=== PATIENT | female | born 1960 | race African-American/Black ===

== ENCOUNTER 2017-04-25 10:03 | Inpatient (IN) | payer OTHER ==
[~2017-04-25] VITALS: Ht 157.5 cm; Wt 93.0 kg
--- NOTE | ~2017-04-25 | PROC ---
[address] [address] PROCEDURE REPORT Name: NEMESIO FELIPE Room: [address] IN .R.#: [id number] Admission: 04/25/17 Attend Phys: Tung Farooq MD Discharge: Date of : 56 Report #: [id number] THIS REPORT FOR: //name// For GI report, please see the Provation report in Perceptive 7 content. By: 0636Medical Records Staff SALAZAR /NISHA
[~2017-04-25 10:03] MED LIST: ACETAMINOPHEN650 M5 PO; ALDACTONE25 MG PO; ALDACTONE50 MG PO; ALLOPURINOL 10100 M2 PO; AMBIEN 10 MG TA10 MG PO; AMBIEN 5 MG TABL5 M1 PO; ASPIRIN325 PO; AVINZA 60 MG CA60 M1 PO; BYSTOLIC10 MG PO; BYSTOLIC20 MG PO; CARDIZEM CD120 MG PO; CARDIZEM CD180 MG PO; CARVEDILOL25 MG PO; CELEXA40 MG; CIPRO500 MG PO; CITRATE OF MAG296 ML PO; CLARITIN10 MG PO; CLONIDINE HCL0.3 M3 TRANSDERM; CLONIDINE0.1 PO; CYMBALTA20 MG PO; CYMBALTA30 MG PO; DETROL2 M1 PO; ELIQUIS5 MG PO; FLAGYL500 MG PO; FLEXERIL PO; FOLIC ACID; GABAPENTIN 100100 MG PO; GLIMEPIRIDE1 MG PO; GLUCOPHAGE500 MG PO; HYDRALAZINE 2525 MG PO; HYDROCHLOROTHIA25 M1 PO; HYDROCODON-ACE1 EAC8 PO; HYDROCODON-ACE1 EACH PO; HYDROCODONE PO; HYDROCODONE-APA1 TA1 PO; IMDUR 30 MG TAB30 M1 PO; K-DUR10 MEQ PO; LASIX 20 MG TAB20 MG PO; LASIX 40 MG TAB40 M2 PO; LASIX 40 MG TAB40 MG PO; LISINOPRIL40 MG PO; LISINOPRIL5 MG PO; MEDROLDOSEPACK; MILK OF MA2400 MG/10 PO; MIRALAX17 GM PO; MIRALAX255 GM PO; MOBIC15 MG PO; MORPHINE S10 MG/5 M2 PO; MORPHINE SULFAT15 M4 PO; MS CONTIN60 MG PO; NEURONTIN 300300 M1 PO; NORVASC 5 MG TAB5 MG PO; NORVASC PO; OMEPRAZOLE40 MG PO; ONDANSETRON HCL4 M2 PO; OXYCONTIN10 M1 PO; PACERONE 200 M200 M1 PO; PERCOCET PO; PRILOSEC40 MG PO; PROAIR HFA8.5 GM INH; ROBAXIN500 MG PO; SPIRONOLACTONE25 M1 PO; SPIRONOLACTONE50 MG PO; VENTOLIN HFA 1818 GM INH; VISTARIL 25 MG25 M1; WELLBUTRIN 100100 MG PO; WELLBUTRIN SR150 MG PO; ZANTAC 150MG T150 M1 PO; ZANTAC 150MG T150 MG PO; ZOFRAN ODT4 MG PO; ZOFRAN8 MG PO
[2017-04-25 10:06] VITALS: BP 188/95
[2017-04-25] MEDS ORDERED: COZAAR 25 MG TA25 M1 PO (10:11)
[2017-04-25 11:32] LABS: ABSOLUTE BASOPHILS 0.1 thou/uL (0.0-0.2); ABSOLUTE EOSINOPHILS 0.2 thou/uL (0.0-0.7); ABSOLUTE MONOCYTES 1.1 thou/uL (0.0-1.2); ABSOLUTE NEUTROPHILS 6.2 thou/uL (1.6-8.1); BASOPHILS 0.8 %; EOSINOPHILS 2.7 %; HEMATOCRIT 40.9 % (37.0-47.0); HEMOGLOBIN 13.5 gm/dL (12.0-15.0); LYMPHOCYTES 11.2 %; MCH 30.9 pg (26.0-34.0); MCHC 33.1 g/dL (28.0-37.0); MCV 93.4 fL (80.0-100.0); MPV 9.1 fl. (7.2-11.1); NUCLEATED RBCS 0 /100WBC; PLATELET COUNT* 380 thou/uL (150-400); POLYS 72.3 %; RBC 4.38 mil/uL (4.20-5.00); RDW-CV 15.4 % (10.5-14.5); WBC 8.5 thou/uL (4.0-11.0)
[2017-04-25 12:14] LABS: ANION GAP 7 mmol/L (7-16); BUN 22 mg/dL (7-18); CALCIUM 8.9 mg/dL (8.5-10.1); CHLORIDE 104 mmol/L (98-107); CO2 29 mmol/L (21-32); CREATININE 1.4 mg/dL (0.6-1.3); GLUCOSE 157 mg/dL (70-99); POTASSIUM 3.9 mmol/L (3.5-5.1); SODIUM 140 mmol/L (136-145)
[2017-04-25 12:21] LABS: ALBUMIN 3.2 g/dL (3.4-5.0); ALKALINE PHOSPHATASE 128 U/L (46-116); LIPASE 120 U/L (73-393); SGOT 111 U/L (15-37); SGPT 107 U/L (30-65); TOTAL BILIRUBIN 1.4 mg/dL (<0.1-1.0); TOTAL PROTEIN 7.6 g/dL (6.4-8.2); TROPONIN-I LEVEL <0.06 ng/mL (<0.06)
[2017-04-25 12:40] LABS: URINE BILIRUBIN NEGATIVE (Negative); URINE BLOOD NEGATIVE (Negative); URINE CLARITY CLEAR; URINE COLOR YELLOW; URINE GLUCOSE-RANDOM NEGATIVE (Negative); URINE KETONES NEGATIVE (Negative); URINE LEUKOCYTES-REFLEX NEGATIVE (Negative); URINE NITRITE-REFLEX NEGATIVE (Negative); URINE PROTEIN TRACE (Negative); URINE UROBILINOGEN >= 8.0 E.U./dl (0.2-1.0)
[2017-04-25 13:27] LABS: INFLUENZA A ANTIGEN None Detected (None Detect)
[2017-04-25 13:28] LABS: INFLUENZA B ANTIGEN None Detected (None Detect)
--- NOTE | 2017-04-25 15:31 | NUR ---
1LITER BAG NS AND FLAGYL WERE PULLED FOR PATIENT AND SENT TO [facility] WITH PATIENT THE CIPRO WAS STILL INFUSING
[2017-04-25 15:33] VITALS: BP 150/79
[2017-04-25 16:00] VITALS: BP 146/76
--- NOTE | 2017-04-25 16:33 | NUR ---
PATIENT ADMITTED FROM ER TO ROOM 114. ALERT AND ORIENTED. RUQ PAIN PARTIALLY CONTROLLED WITH MORPHINE. NAUSEATED- ZOFRAN GIVEN. IVF AND FLAGYL INFUSING AT THIS TIME. PATIENT HAS H/O CHF-INFORMED DR. VIDAL THAT FLUIDS ARE RUNNING AT 150ML/HR, AND PATIENT HAS WHEEZES AND PRODUCTIVE COUGH-ORDERS TO DECREASE FLUIDS TO 75ML/HR, AND GIVE LASIX IV X1. ADMISSION HISTORY AND ASSESSMENT CHARTED. VSS. O2 SAT ON2L- 96%. PATIENT VOIDED UPON ARRIVAL. ORIETNED TO ROOM. ORAL SWABS PROVIDED.GI AND SURGERY CONSULTED. CALL LIGHT WITHIN REACH. WILL CONTINUE TO MONITOR.
--- NOTE | 2017-04-25 18:45 | NUR ---
I WAS PAGED BY ORTHO WHILE IN THE ER AND RETURNED THE CALL. I WAS TOLD THAT THE PT IN 114 DID NOT RECIEVE A BREATHING TREATMENT. I WAS UNAWARE OF ANY TREATMENTS BEING DUE ON THAT FLOOR THE BOARD IN OUR DEPT DID NOT REFLECT ANY PT'S. I WAS TOLD THAT WAS NOT CORRECT. I STATED I WOULD HEAD DOWN THERE AFTER I HAD FINISHED IN THE ER. WHEN I WAS DONE IN THE ER I LOOKED UP THE PT ON ORTHO AND REALIZED IT WAS A NEW ORDER AND WAS (QID) WITH NO (PRN) ORDERS. THE FIRST TREATMENT WAS DUE AT 1999 (8PM). I CALLED THE ORTHO FLOOR TO EXPLAIN THE CONFLICT AND SUGGESTED A PRN ORDER WOULD BE HELPFUL IN THIS SITUATION.
[2017-04-25 22:10] VITALS: BP 163/85
[2017-04-26 01:25] VITALS: BP 177/90
[2017-04-26 04:07] VITALS: BP 170/58
[2017-04-26 04:30] LABS: ABSOLUTE BASOPHILS 0.1 thou/uL (0.0-0.2); ABSOLUTE EOSINOPHILS 0.3 thou/uL (0.0-0.7); ABSOLUTE MONOCYTES 1.4 thou/uL (0.0-1.2); ABSOLUTE NEUTROPHILS 5.4 thou/uL (1.6-8.1); BASOPHILS 1.1 %; EOSINOPHILS 3.5 %; HEMATOCRIT 36.5 % (37.0-47.0); HEMOGLOBIN 12.1 gm/dL (12.0-15.0); LYMPHOCYTES 12.1 %; MCH 30.8 pg (26.0-34.0); MCHC 33.1 g/dL (28.0-37.0); MONOCYTES 17.3 %; MPV 8.9 fl. (7.2-11.1); NUCLEATED RBCS 0 /100WBC; PLATELET COUNT* 324 thou/uL (150-400); RBC 3.93 mil/uL (4.20-5.00); RDW-CV 14.8 % (10.5-14.5); WBC 8.2 thou/uL (4.0-11.0)
[2017-04-26 05:23] LABS: ALBUMIN 3.1 g/dL (3.4-5.0); CALCIUM 8.6 mg/dL (8.5-10.1); CREATININE 1.3 mg/dL (0.6-1.3); MAGNESIUM 1.6 mg/dL (1.8-2.4); PHOSPHORUS* 4.4 mg/dL (2.5-4.9); POTASSIUM 4.1 mmol/L (3.5-5.1); TOTAL BILIRUBIN 0.8 mg/dL (<0.1-1.0); TOTAL PROTEIN 6.8 g/dL (6.4-8.2)
--- NOTE | 2017-04-26 06:52 | NUR ---
UP WITH STAND BY ASSIST TO BEDSIDE COMMODE. ALERT AND ORIENTED. LUNG SOUNDS COARSE AND WITH WHEEZES AT BEGINNING OF SHIFT. BREATHING TREATMENT GIVEN AND BY END OF SHIFT PATIENT STATED SHE WAS FEELING MUCH BETTER AND LUNGS BETTER WITHOUT WHEEZES. O2 SAT 93% WITH O2 AT 2L/NC. NEW IV STARTED WITHOUT DIFFICLUTY. PATIENT NPO AT THIS TIME. CALL LIGHT WITHIN REACH.
[2017-04-26 08:00] VITALS: BP 162/78
--- NOTE | 2017-04-26 09:32 | NUR ---
SPOKE WITH DR. SOUSA REGARDING PLANS FOR PATIENT TODAY. PER DR. SOUSA WE CAN DO AN MRCP IF POSSIBLE, HOWEVER PATIENT HAS DEFIBRILLATOR. SPOKE WITH DARLINE IN MRI AND THE DEFIBRILLATOR IS NOT COMPATIBLE WITH MRI. STATED IF UNABLE TO DO MRI SHE CAN EAT. CALLED STIFF LEG OPERATOR TO INFORM THEM OF GI'S RECOMENDATION. AWAITING RETURN CALL.
--- NOTE | 2017-04-26 10:49 | EKG ---
[place] [address] ELECTROCARDIOGRAM REPORT Name: MATTEONEMESIO Elmer Room: [address] ADM IN [facility]#: [id number] Admission: 04/25/17 Attend Phys: Tung Farooq MD Discharge: Date of : 56 Report #: [id number] THIS REPORT FOR: //name// [facility] ED Test Date: 2017-04-25 Test Time: 10:07:49 Pat Name: NEMESIO FELIPE Department: Room: [facility] Gender: F Nursing Agency Manager: [facility] : 1960 Requested By: Lucy Reno Order Number: [id number] MD: Rich Rader Measurements Intervals Fertile Rate: 79 P: 11 HI: 187 QRS: -41 QRSD: 113 T: 86 QT: 433 QTc: 497 Interpretive Statements Sinus rhythm Probable left atrial enlargement Left ventricular hypertrophy Nonspecific T abnormalities, lateral leads Borderline prolonged QT interval Compared to ECG 10/15/2016 13:46:47 rate increased Electronically Signed On 04-26-2017 10:49:19 PAPER INSERTER by Rich Rader [email or web address] <ELECTRONICALLY SIGNED> By: Rich Rader MD, FACC 04/26/17 1049 1007 1007 Rich Rader MD, FAC /EPI
--- NOTE | 2017-04-26 14:38 | NUR ---
ASK IF PATIENT NEEDED TO BE ON ANTIBIOTICS, PER DR. SOUSA PATIENT DOES NOT NEED ANTIBIOTIC.
[2017-04-26 16:00] VITALS: BP 160/80
--- NOTE | 2017-04-26 16:19 | NUR ---
PATIENT REMAINS ALERT AND ORIENTED. PAIN CONTROLLED WITH MORPHINE. ZOFRAN FOR NAUSEA. VOIDING PER BSC. IVF SL THIS AFTERNOON. PATIENT HAD RUQ PAIN AFTER HEART HEALTHY DIET FOR LUNCH. DR. MERRY MOSS, EGD PLANNED FOR TOMORROW DUE TO HISTORY OF GASTRITIS. PATIENT WILL BE NPO AFTER 0600. POSSIBLE SURGERY WED. DR. JAMES CONSULTED FOR PRE OP CLEARANCE. CALL LIGHT WITHIN REACH. WILL CONTINUE TO MONITOR.
[2017-04-26 21:00] VITALS: BP 154/79
[2017-04-27] VITALS (7 sets, daily range): BP systolic 143–167; BP diastolic 66–75
[2017-04-27 04:47] LABS: ABSOLUTE BASOPHILS 0.1 thou/uL (0.0-0.2); ABSOLUTE EOSINOPHILS 0.4 thou/uL (0.0-0.7); ABSOLUTE LYMPHOCYTES 1.1 thou/uL (0.8-5.3); ABSOLUTE MONOCYTES 1.4 thou/uL (0.0-1.2); ABSOLUTE NEUTROPHILS 4.2 thou/uL (1.6-8.1); BASOPHILS 0.8 %; HEMATOCRIT 36.4 % (37.0-47.0); HEMOGLOBIN 11.8 gm/dL (12.0-15.0); LYMPHOCYTES 15.1 %; MCH 30.6 pg (26.0-34.0); MCHC 32.5 g/dL (28.0-37.0); MCV 94.1 fL (80.0-100.0); MPV 8.7 fl. (7.2-11.1); NUCLEATED RBCS 0 /100WBC; PLATELET COUNT* 292 thou/uL (150-400); POLYS 59.1 %; RBC 3.87 mil/uL (4.20-5.00); RDW-CV 14.7 % (10.5-14.5); WBC 7.2 thou/uL (4.0-11.0)
[2017-04-27 05:01] LABS: CALCIUM 8.4 mg/dL (8.5-10.1); CREATININE 1.3 mg/dL (0.6-1.3); POTASSIUM 3.8 mmol/L (3.5-5.1); TOTAL BILIRUBIN 0.8 mg/dL (<0.1-1.0); TOTAL PROTEIN 6.9 g/dL (6.4-8.2)
[2017-04-27 05:23] LABS: ALBUMIN 2.9 g/dL (3.4-5.0); DIRECT BILIRUBIN 0.2 mg/dL (<0.1-0.3); TOTAL BILIRUBIN 0.8 mg/dL (<0.1-1.0); TOTAL PROTEIN 6.9 g/dL (6.4-8.2)
--- NOTE | 2017-04-27 05:26 | NUR ---
PATIENT ALERT AND ORIENTED. VITALS STABLE. ON 1L OF OXYGEN. COMPLAINTS OF HEADACHE AND BACK PAIN. IV PAIN MEDICATION GIVEN. ZOFRAN GIVEN PROPHYLACTICALLY. UP SBA TO B[facility]. WILL BE NPO AT 0600 FOR EGD. HOURLY ROUNDS. NURSING WILL CONTINUE TO MONITOR.
--- NOTE | 2017-04-27 10:11 | NUR ---
NURSING PAINTER TUMBLING BARREL CALLED [facility] TO NOTIFIY THEM OF THE NEED TO INTERROGATE DEFIBRILLATOR POST OP TOMORROW.
--- NOTE | 2017-04-27 15:59 | NUR ---
PATIENT RETURNED FROM EGD AT THIS TIME. TOLERATING LIQUIDS. 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 ABDOMINAL PAIN CONTROLLED WITH MORPHINE. PATIENT WILL BE NPO AFTER MIDNIGHT FOR SURGERY TOMORROW. PATIENT SITS EDGE OF BED FREQUENTLY. DOES NOT AMBULATE MUCH NORMALLY DUE TO BACK PAIN AND KNEE PAIN. IV SALINE LOCKED. CALL LIGHT WITHIN REACH. WILL CONTINUE TO MONITOR.
--- NOTE | 2017-04-27 17:36 | CON ---
[address] [address] CONSULTATION Name: NEMESIO FELIPE Room: [address] IN .R.#: [id number] Admission: 04/25/17 Attend Phys: Tung Farooq MD Discharge: Date of : 56 Report #: [id number] THIS REPORT FOR: //name// CC: Tung Delacruz DATE OF SERVICE: 04/26/2017 HISTORY OF PRESENT ILLNESS: The patient is a 56-year-old single black female who was asked to see in the hospital today for preoperative evaluation. The patient presented in 2012 with chest pain and shortness of breath. She saw Dr. Cárdenas and had a heart catheterization. This showed normal coronary arteries and an ejection fraction of 25%. She is felt to have a nonischemic cardiomyopathy. She was discharged with LifeVest. After discharge, the LifeVest shocked her. She was admitted to [facility] and Dr. Zaidi implanted a single lead [employer] defibrillator in 02/2013. She has done well since that time. Her last echocardiogram here at [facility] was in 08/2016 that showed an ejection fraction of only 45%. Because of insurance, she has recently been followed by Dr. Eagle virgen at [place]. She apparently had her defibrillator checked there at [place] in February. She denied any recent discharges. The patient is not very active because of chronic back pain. She uses a walker. She apparently had back surgery last July at [place]. The patient recently has been having nausea and vomiting. She came to the Emergency Room yesterday. There are plans for cholecystectomy. I was asked to see her for preoperative evaluation. She denied any significant chest pain, increased shortness of breath, edema, palpitations, recent discharge of her defibrillator. PAST MEDICAL HISTORY: Significant for 3 back surgeries now. She has a history of hypertension, diabetes. She has a history of depression. CURRENT MEDICATIONS: Include Lasix, Cymbalta, ProAir, allopurinol, carvedilol, glimepiride, and losartan. ALLERGIES: SHE HAS INTOLERANCE TO MORPHINE. FAMILY HISTORY: Father with heart disease. SOCIAL HISTORY: She is single. She does have 2 daughters, never been . Used to work in real estate. She is now on disability. She previously smoked marijuana years ago, rarely drinks alcohol, no tobacco use. REVIEW OF SYSTEMS: She has had no history of stroke. She does have history of asthma. No history of peptic ulcer disease or liver disease. She has chronic kidney disease. She has a history of depression. No chronic skin condition. She is overweight, standing 5 feet 4 inches and weighing [address] [place] [address] CONSULTATION Name: NEMESIO FELIPE Room: [address] IN [facility]#: [id number] Admission: 04/25/17 Attend Phys: Tung Farooq MD Discharge: Date of : 56 Report #: [id number] PHYSICAL EXAMINATION: GENERAL: Revealed a middle-aged black female, lying in bed. She appeared in no distress. VITAL SIGNS: She had a blood pressure of 140/70, pulse is 80. She is afebrile. HEENT: She was anicteric, conjunctiva pink. Mucous membranes moist. NECK: Veins are difficult to assess due to obesity. No carotid bruits. CHEST: Clear to auscultation. HEART: Regular rate and rhythm. ABDOMEN: Obese, soft, nontender. EXTREMITIES: Had no edema. Dorsalis pedis pulse 1+ bilaterally. SKIN: Cool and dry. NEUROLOGIC: Nonfocal. LYMPH: No adenopathy. MUSCULOSKELETAL: No joint effusion. RADIOLOGICAL DATA: ECG showed a sinus rhythm, left axis, nonspecific ST-segment changes, left ventricular hypertrophy. LABORATORY DATA: Sodium 144, BUN 18, glucose 90. Her SGPT 123, SGOT 85, bilirubin 0.8, alkaline phosphatase 96. Troponin 0.06. BNP 1378. Her white blood cell count is 8.2, hemoglobin 12.1. Workup so far, she had abdominal ultrasound done yesterday that showed gallstones, gallbladder wall thickening, and possible cholecystitis. IMPRESSION AND RECOMMENDATIONS: 1. Gallstones. The patient might require gallbladder surgery. The patient appears to have no cardiac contraindication to cholecystectomy, although she will be at small cardiac risk for postoperative complications because of her history of nonischemic cardiomyopathy and previous defibrillator. I would recommend turning off therapy by her defibrillator during surgery. 2. Cardiomyopathy. The patient is on an ARB and beta negin. 3. Hypertension. Appears controlled at this time. 4. Diabetes. 5. Chronic back pain. 6. History of asthma. <ELECTRONICALLY SIGNED> By: Rich Rader MD, FACC 04/27/17 1736 1125 1937Rich Rader MD, FACC /nt
[2017-04-28 04:14] LABS: HEMATOCRIT 38.1 % (37.0-47.0); HEMOGLOBIN 12.2 gm/dL (12.0-15.0); MCH 30.3 pg (26.0-34.0); MCHC 31.9 g/dL (28.0-37.0); MCV 95.1 fL (80.0-100.0); MPV 8.4 fl. (7.2-11.1); NUCLEATED RBCS 0 /100WBC; PLATELET COUNT* 294 thou/uL (150-400); RBC 4.01 mil/uL (4.20-5.00); RDW-CV 14.9 % (10.5-14.5); WBC 7.8 thou/uL (4.0-11.0)
[2017-04-28 04:34] LABS: CALCIUM 8.4 mg/dL (8.5-10.1); CREATININE 1.4 mg/dL (0.6-1.3); POTASSIUM 3.5 mmol/L (3.5-5.1); TOTAL BILIRUBIN 0.7 mg/dL (<0.1-1.0)
--- NOTE | 2017-04-28 05:47 | NUR ---
PATIENT ALERT AND ORIENTED. VITALS STABLE. RA. COMPLAINTS OF CHRONIC BACK AND LEFT FOOT PAIN. MORPHINE GIVEN, EFFECTIVE. UP SBA TO BSC. WILL BE NPO AT 0700 FOR LAP BARBRA. HOURLY ROUNDS. NURSING WILL CONTINUE TO MONITOR.
[2017-04-28 07:03] LABS: ABSOLUTE BASOPHILS 0.1 thou/uL (0.0-0.2); ABSOLUTE EOSINOPHILS 0.2 thou/uL (0.0-0.7); ABSOLUTE LYMPHOCYTES 0.7 thou/uL (0.8-5.3); ABSOLUTE MONOCYTES 1.4 thou/uL (0.0-1.2); ABSOLUTE NEUTROPHILS 5.5 thou/uL (1.6-8.1); METAMYELOCYTES 1 %
[2017-04-28 07:04] LABS: PLATELET ESTIMATE ADEQUATE
[2017-04-28 08:40] VITALS: BP 162/82
[2017-04-28 14:30] VITALS: BP 148/73
--- NOTE | 2017-04-28 17:30 | OP ---
[address] [address] OPERATIVE REPORT Name: NEMESIO FELIPE Room: [address] IN .R.#: [id number] Admission: 04/25/17 Attend Phys: Tung Farooq MD Discharge: Date of : 56 Report #: [id number] THIS REPORT FOR: //name// CC: Tung Delacruz DATE OF SERVICE: 04/28/2017 PREPROCEDURE DIAGNOSES: Acute cholecystitis with cholelithiasis without obstruction with dilated common bile duct and elevated liver function tests. POSTOPERATIVE DIAGNOSES: Acute cholecystitis with cholelithiasis without obstruction with dilated common bile duct and elevated liver function tests. FINDINGS: Distended gallbladder with some mild bile staining around the gallbladder. There were several small stones identified within the gallbladder. Intraoperative cholangiogram did identify dilated common bile duct with no signs of obstruction. There was free flow of contrast into the duodenum. SURGEON: Florencia Madera DO. COSURGEON: Nehemiah Camp, PGY-1. BED SETTER: DONTA Carr. PROCEDURE PERFORMED: Laparoscopic cholecystectomy with intraoperative cholangiogram and surgeon interpretation of images. ANESTHESIA: General endotracheal and local. ESTIMATED BLOOD LOSS: 5 mL. DRAINS: None. SPECIMENS: Gallbladder. COMPLICATIONS: None. CONDITION: Stable. DISPOSITION: PACU to the floor. HISTORY OF PRESENT ILLNESS: The patient is a very pleasant 56-year-old female who presented to the hospital with a complaint of right upper quadrant abdominal pain associated with nausea. She underwent a CT scan and an ultrasound with findings of a dilated gallbladder with stones in [place] [address] OPERATIVE REPORT Name: NEMESIO FELIPE Room: [address] IN [facility].#: [id number] Admission: 04/25/17 Attend Phys: Tung Farooq MD Discharge: Date of : 56 Report #: [id number] CBD was also found to be dilated at 10 mm. Her LFTs were also elevated. She was unable to undergo an MRCP due to a defibrillator placement. GI was consulted. LFTs were trended and did improve. She underwent an EGD yesterday with no acute findings. She was then consented for laparoscopic cholecystectomy with intraoperative cholangiogram. Risks discussed included bleeding, infection, pain, scar formation, injury to bowel, liver or bile duct, hernia at the incision sites, need for an open procedure and risks of general anesthesia. The patient understood these risks and elected to proceed. DESCRIPTION OF PROCEDURE: The patient was brought to the operating room. She was laid supine on the operating room table. SCDs were placed on bilateral lower extremities. Antibiotics were given in the perioperative period. General endotracheal anesthesia was induced by Anesthesia without difficulty. Abdomen was prepped and draped in standard sterile fashion. Timeout was performed to verify patient and procedure. A 10 mL 0.5% Marcaine was injected in the supraumbilical area. Incision was made with an 11 blade. Cautery was used for hemostasis. S retractors were used to visualize the fascia. Fascia was grasped and elevated between two Kochers. Fascia was incised using cautery. Peritoneum was bluntly entered using a Lena clamp. Finger was swept into the abdomen to assure that there were no ziyad-incisional adhesions. Adhesions were identified. They appeared to be omentum. These were gently swept to the side. Two stitches of 0 Vicryl were then placed on the fascia. Rosaura trocar was introduced and secured with 0 Vicryl stitches. Abdomen was insufflated. The patient was placed head up and tilted left side down. Camera was introduced and a brief anterior abdominal exploration was undertaken with findings of a dilated gallbladder with some mild bile staining in the right upper quadrant and again there were a few adhesions between the omentum and the pelvis. An 11 mm trocar was introduced in the subxiphoid area as well as two 5 mm trocars in the right upper quadrant. Gallbladder was grasped and elevated. Peritoneum overlying the triangle of Calot was incised using cautery. Both duct and artery were then easily visualized, both were circumferentially dissected using a [place] dissector. Boss clamp was then introduced through a 5 mm trocar and the neck of the gallbladder was grasped without difficulty. Self-penetrating catheter was also introduced and bile was easily aspirated. Saline was easily flushed. The patient was placed supine and C-arm was brought onto the field. Intraoperative cholangiogram was then performed without difficulty. The cystic duct was patent, common bile duct and the left and right hepatic radicals were easily identified. Contrast freely flowed into the duodenum. There was no sign of any obstruction or retained stone, but the common bile duct was dilated. Cholangiogram catheter was removed as was the Boss clamp. The patient was returned to reverse Trendelenburg and left side down. Three clips were then placed proximally and distally on the duct, 2 clips were placed proximally and distally on the artery. Both were sharply incised with scissors. Gallbladder was then removed from the liver bed utilizing cautery with no further difficulty. Specimen was placed within an EndoCatch bag. Right upper quadrant was irrigated until clear. Liver bed was inspected. It was hemostatic. [place] [id number] OPERATIVE REPORT Name: NEMESIO FELIPE Room: [address] IN [facility]#: [id number] Admission: 04/25/17 Attend Phys: Tung Farooq MD Discharge: Date of : 56 Report #: [id number] were inspected. They appeared to be intact. There was no bleeding or leakage noted from the area of the clips. Trocars were removed under direct visualization. There was no bleeding noted from the peritoneum. Abdomen was then completely desufflated. Rosaura trocar was removed and EndoCatch bag was removed with specimen intact. Kochers were placed on the fascia of right infraumbilical port. Previously placed 0 Vicryl stitches were removed and a 0 Vicryl stitch was placed in [id number] fashion with excellent approximation of the fascia. An additional 10 mL of 0.5% Marcaine was injected in the fascia. This wound was then closed in a layered fashion using deep and superficial stitches of 3-0 Vicryl in inverted interrupted fashion. All skin wounds were closed with 4-0 Monocryl. A total of 50 mL of 0.5% Marcaine was used to anesthetize the wounds. Wounds were then cleansed and covered with Mastisol, Steri-Strips, 4 x 4s, and a Tegaderm. The patient was then allowed to awaken from anesthesia, was extubated and transported to the recovery room with no further difficulties. Counts were correct at the conclusion of the case. <ELECTRONICALLY SIGNED> By: Florencia Madera, 04/28/17 1730 1700 1722Chollie Madera DO /nt
--- NOTE | 2017-04-28 17:54 | NUR ---
PATIENT REMAINED ALERT AND ORIENTED X'S 4. VITAL SIGNS AND SPO2 STABLE. NO IV. PAIN CONTROLLED WITH PAIN MEDS. PATIENT LEFT UNIT AT 1400 FOR PACU, HAS NOT RETURNED TO UNIT YET. COMPLETED HOURLY ROUNDING. WILL CONTINUE TO MONITOR.
[2017-04-28 20:30] VITALS: BP 172/93
[2017-04-29 04:54] VITALS: BP 160/75
[2017-04-29 08:20] VITALS: BP 158/74
[2017-04-29 10:04] LABS: HEMATOCRIT 36.9 % (37.0-47.0); HEMOGLOBIN 11.9 gm/dL (12.0-15.0); MCH 30.6 pg (26.0-34.0); MCHC 32.2 g/dL (28.0-37.0); MPV 8.7 fl. (7.2-11.1); RBC 3.88 mil/uL (4.20-5.00); RDW-CV 14.8 % (10.5-14.5); WBC 14.9 thou/uL (4.0-11.0)
[2017-04-29 10:15] LABS: ALBUMIN 3.1 g/dL (3.4-5.0); CALCIUM 8.5 mg/dL (8.5-10.1); CREATININE 1.6 mg/dL (0.6-1.3); POTASSIUM 3.2 mmol/L (3.5-5.1); TOTAL BILIRUBIN 0.8 mg/dL (<0.1-1.0); TOTAL PROTEIN 7.3 g/dL (6.4-8.2)
--- NOTE | 2017-04-29 16:30 | NUR ---
PT.SITTING ON SIDE OF BED. STATED SHE IS FEELING BETTER. HOPES TO GO HOME TOMORROW. STATED DAUGHTER EVER LIVES WITH HER IN AN APT. HER DAUGHTER HELPS HER NEEDED. THERE ARE 14 STAIRS FROM MAIN LEVEL OF APT.TO PT.'S BEDROOM. SHE SAID SHE CRAWLS UP THE STAIRS. HAS A HX OF BACK SURGERY. SHE IS ABLE TO WALK DOWN THEM. SHE HAS A WC,ROLLATOR WALKER AND WC. SHE STAYS IN HER ROOM MOST OF THE TIME. DAUGHTER BRINGS FOOD UP TO HER FOR MEALS. THERE IS A BATHROOM ON UPPER LEVEL. SHE MAINLY TAKES SPONGE BATHS. SHE HAS A BATH BENCH BUT DAUGHTER DOESN'T LIKE IT TO STAY IN THE BATHROOM SO IT HAS TO BE CARRIED IN THERE EACH TIME PT.WANTS TO TAKE A BATH. SHE SAID I DON'T LIKE TO BOTHER HER FOR IT.SHE WOULD BE AGREEABLE TO HOME HEALTH. SHE LIKES [facility] AND WOULD LIKE TO USE THEM AGAIN. CM WILL FOLLOW FOR DISCHARGE.
[2017-04-29 16:32] VITALS: BP 127/55
--- NOTE | 2017-04-29 19:59 | NUR ---
PATIENT REMAINED ALERT AND ORIENTED X'S 4. VITAL SIGNS AND SPO2 STABLE. PAIN WELL CONTROLLED WITH PAIN MEDS. PATIENT WAS UNABLE TO URINATE THROUGHOUT SHIFT. SHE WAS STRAIGHT CATHED AND 300 CAME OUT, THEN BLADDER SCANNED HER, NOTHING WAS LEFT IN THE BLADDER. SHE MOVES PRETTY SLOW BUT IS STABLE, 1 ASSIST. DRESSING OVER ABDOMEN CLEAN, DRY, INTACT. IV FLUSHING, CLEAN, INTACT. COMPLETED HOURLY ROUNDING. CALL LIGHT WITHIN REACH. WILL CONTINUE TO MONITOR.
[2017-04-29 20:30] VITALS: BP 147/77
[2017-04-30] VITALS: BP 138/55
--- NOTE | 2017-04-30 06:09 | NUR ---
PATIENT HAS REMAINED ALERT AND ORIENTED X 4 THROUGHOUT THE SHIFT AND RESTING QUIETLY ON HOURLY ROUNDS. MEDICATED X 4 FOR ABDOMINAL PAIN. O2 HAS BEEN DECREASED TO 1.5 L/MIN WITH SATS >92%. RT TREATMENTS CONTINUE. LAP SITES TO ABDOMEN CLEAN AND DRY. NO NAUSEA. PASSING SOME GAS. TOLERATING CLEAR DIET. PER DAYSHIFT REPORT PATIENT HAD BEEN UNABLE TO VOID POST-OP AND STRAIGHT CATH X 2 HAD BEEN PROVIDED. THE LAST PER REPORT 1600 04/29/17 WITH 300 ML RETURN. AT MIDNIGHT PATIENT UP TO [facility] AND WAS ABLE TO VOID 150 ML AND AGAIN AT 0600 A VOID OF 175 ML. POST VOID RESIDUAL 0600 SHOWING 345 ML. WILL COMMUNICATE WITH PHYSICIAN IF FURTHER STRAIGHT CATH TO BE PROVIDED OR TO GIVE PATIENT FURTHER TIME TO VOID ON OWN. VITAL SIGNS STABLE. CONTINUE TO MONITOR.
[2017-04-30 06:44] LABS: CALCIUM 8.7 mg/dL (8.5-10.1); CREATININE 1.3 mg/dL (0.6-1.3); POTASSIUM 4.1 mmol/L (3.5-5.1)
[2017-04-30 08:19] LABS: HEMATOCRIT 35.2 % (37.0-47.0); HEMOGLOBIN 11.4 gm/dL (12.0-15.0); MCH 30.1 pg (26.0-34.0); MCHC 32.5 g/dL (28.0-37.0); MCV 92.7 fL (80.0-100.0); MPV 8.4 fl. (7.2-11.1); NUCLEATED RBCS 0 /100WBC; PLATELET COUNT* 265 thou/uL (150-400); RDW-CV 14.7 % (10.5-14.5); WBC 14.9 thou/uL (4.0-11.0)
[2017-04-30 08:57] LABS: ABSOLUTE BASOPHILS 0.1 thou/uL (0.0-0.2); ABSOLUTE EOSINOPHILS 0.3 thou/uL (0.0-0.7); ABSOLUTE MONOCYTES 1.6 thou/uL (0.0-1.2); ABSOLUTE NEUTROPHILS 11.8 thou/uL (1.6-8.1); PLATELET ESTIMATE ADEQUATE
[2017-04-30 09:32] VITALS: BP 165/72
--- NOTE | 2017-04-30 14:03 | S ---
[address] [address] SURGICAL PATH RPT PROCEDURE Name: NEMESIO BURNETT Room: [address] IN ..#: [id number] Admission: 04/25/17 Date of : 56 Discharge: Report #: [id number] Path Case #: [id number] PATHOLOGY REPORT COLLECTION DATE: 04/28/2017 RECEIVED DATE: 04/29/2017 SUBMITTING PHYS: Dr. Florencia Madera OTHER PHYS: Dr. Tung Delacruz SPECIMEN(S) RECEIVED: A.Gallbladder * * * * * * * * * * * * FINAL DIAGNOSIS: Gallbladder: - Chronic cholecystitis with cholesterolosis. (JEANETTE:db; 04/30/2017) PATHOLOGIST: Alec Chapa M.D. REPORT ELECTRONICALLY SIGNED BY: Alec Chapa M.D. DATE/TIME: 04/30/2017 14:03 * * * * * * * * * * * * GROSS PATHOLOGY: Received in formalin labeled "Nemesio Burnett gallbladder" and consists of an intact 8.7 x 4.6 cm gallbladder. The serosa is glistening and dark green. The margin is inked. The lumen contains 20 cc of thick green bile. No calculi are present. The wall averages 0.2 cm thick. The mucosa is velvety, green, and shows staining yellow flecks. Service Transformer Repair Supervisor sections are submitted as A1. (AVANI; 04/29/2017) CLINICAL HISTORY: Acute cholecystitis INITIAL CPT CODE(S): A; 49529 Professional services performed by [facility] at [facility], [address] [place] [address]., [place] [address]. Technical services performed by [facility] at [address] [place] [address], [facility] [address] [address]. [facility] [address] [place] [address] SURGICAL PATH RPT PROCEDURE Name: NEMESIO BURNETT Room: [address] IN ..#: [id number] Admission: 04/25/17 Date of : 56 Discharge: Report #: [id number] Path Case #: [id number] [address] PHONE: [phone] DIRECTOR: Paco Waterman M.D. * * * END OF REPORT * * *
--- NOTE | 2017-04-30 15:10 | NUR ---
REFERRAL MADE TO [facility] FOR WHEN PT.DISCHARGES. IF DISCHARGED OVER THE WEEKEND, NOTIFY [phone] AND FAX DISCHARGE ORDERS TO [phone].
[2017-04-30 15:28] VITALS: BP 134/76
--- NOTE | 2017-04-30 17:34 | NUR ---
ASSUMED CARE OF PATIENT AFTER REPORT THIS MORNING. PATIENT AWAKE, ALERT, AND ORIENTED APPROPRIATELY. PHYSICAL ASSESSMENT COMPLETED AND CHARTED. COMPLAINED OF PAIN THIS SHIFT. GIVEN PRN AND SCHEDULED MEDICATIONS, SEE EMAR FOR DOCUMENTATION. VITAL SIGNS STABLE. OXYGEN SATURATION WITHIN NORMAL LIMITS ON 1.5 LPM PER NASAL CANULA. PATIENT TRANSFERS AND AMBULATES WITH ASSISTANCE FROM STAFF. HAD SHOWER TODAY WITH OCCUPATIONAL THERAPY. IS SITTING IN WHEELCHAIR AT BEDSIDE AT THIS TIME PER PATIENT REQUEST. DENIES NEEDS AT THIS TIME. CALL LIGHT WITHIN REACH, USES APPROPRIATELY. NURSING WILL CONTINUE TO MONITOR.
[2017-04-30 21:10] VITALS: BP 136/81
[2017-04-30 23:42] VITALS: BP 121/59
--- NOTE | 2017-05-01 04:59 | NUR ---
PATIENT HAS REMAINED ALERT AND ORIENTED X 4 THROUGHOUT THE SHIFT AND RESTING QUIETLY ON HOURLY ROUNDS. IMPROVED PAIN MANAGEMENT WITH ORAL MEDS ONLY. VOIDING ADEQUATELY AND PASSING GAS. HAS DENIED NAUSEA. LAP DRESSINGS X 3 CLEAN AND DRY. VITAL SIGNS STABLE. CONTINUE TO MONITOR.
[2017-05-01 05:14] VITALS: BP 147/93
[2017-05-01 07:41] VITALS: BP 136/50
[2017-05-01 12:21] VITALS: BP 136/50
--- NOTE | 2017-05-01 15:16 | NUR ---
ORDERS RECEIVED FOR DC HOME WITH HH. PT HAD PREVIOUSLY CHOSEN [facility], CONFIRMED [facility] HER THAT IS STILL WHO SHE WANTS TO USE. CALLED AND FAXED ORDERS TO [facility], HAD TO LEAVE [facility]. PT DENIES OTHER NEEDS
[2017-05-01] MEDS ORDERED: REGLAN 10 MG TA10 MG PO (15:55)
[2017-05-01] MEDS ORDERED: PROTONIX40 M4 PO (15:56)
[2017-05-01] MEDS ORDERED: TYLENOL325 MG PO (15:57)
[2017-05-01] MEDS ORDERED: FLOMAX0.4 MG PO (15:58)
[2017-05-01] MEDS ORDERED: MIRALAX17 GM PO (16:00)
[2017-05-01] MEDS ORDERED: COLACE CLEAR50 MG PO (16:00)
--- NOTE | 2017-05-01 17:29 | NUR ---
ASSUMED CARE OF PATIENT AFTER MORNING REPORT. ALERT AND ORIENTED X4. ASSESSMENT COMPLETED AND CHARTED. VSS ON 1.5 LITERS 02. PATIENT HAS HAD NO COMPLAINTS OF NAUSEA THIS SHIFT. PAIN HAS BEEN MANAGED WITH PAIN MEDICATION. PATIENT TITRATED OFF OF 02 AND PASSED THE REST AND EXERCIZE WITH RT. PATIENT DISCHARGED AT 1625. ALL PERSONAL BELONGINGS LEFT WITH PATIENT. PRESCRIPTIONS AND DISCHARGE INFORMATION SENT WITH PATIENT UPON DISCHARGE.
--- NOTE | 2017-05-13 14:50 | CON ---
[address] [address] CONSULTATION Name: NEMESIO FELIPE Room: [address] IN .R.#: [id number] Admission: 04/25/17 Attend Phys: Tung Farooq MD Discharge: 05/01/17 Date of : 56 Report #: [id number] THIS REPORT FOR: //name// CC: Tung Delacruz MD DICTATED BY: Deanna Mansfield [facility] DATE OF SERVICE: 04/26/2017 PRIMARY CARE PHYSICIAN: Rich Delacruz MD Please note at the time of this dictation, the patient was seen and physically examined by myself. REASON FOR CONSULTATION: Elevated LFTs, possible choledocholithiasis. HISTORY OF PRESENT ILLNESS: This is a 56-year-old -[place] female who presented to the Emergency Room with increasing epigastric to right upper quadrant pain associated with some nausea, which had been intermittent over the last few months, but had at times was very radiating to the upper right back and shoulder. She does have some history of difficulty with bowel and bladder incontinence, but that has been present for greater than 1 year. She does report getting full very quickly over the last couple of months, but thought it was more related to her congestive heart failure. The patient had been taken naproxen regularly up until about 2 weeks ago and she quit taking that. The patient underwent a colonoscopy back in 01/2016 that showed a colon polyp, diverticulosis and internal hemorrhoids. EGD showed mild gastritis. Biopsies showed tubular adenoma of the polyp with a repeat in 5 years. ALLERGIES: CONTRAST IV AND ORAL. MEDICATIONS: From home hydrocodone, Zofran, milk of mag, Cozaar, Coreg, clonidine, Cymbalta, allopurinol, glimepiride, hydralazine, Lasix, amiodarone, Ventolin, Neurontin. PAST MEDICAL HISTORY: Includes diabetes, heart disease, hypertension, lung disease, asthma, renal disease, and GERD. PAST SURGICAL HISTORY: Laminectomy, ectopic with tube removal, appendectomy and a pacer and defibrillator placed. FAMILY HISTORY: Significant for breast cancer in her mother and sister as well as colon [place] [address] CONSULTATION Name: NEMESIO FELIPE Room: [address]#: [id number] Admission: 04/25/17 Attend Phys: Tung Farooq MD Discharge: 05/01/17 Date of : 56 Report #: [id number] SOCIAL HISTORY: Denies any alcohol, tobacco or illegal drug use. REVIEW OF SYSTEMS: Twelve-point review of systems is essentially negative except what is mentioned in the HPI. PHYSICAL EXAMINATION: VITAL SIGNS: Temperature 36.9, pulse 88, respirations 20, blood pressure 162/78. HEART: Regular rate and rhythm. LUNGS: Clear. ABDOMEN: Soft, positive bowel sounds in all 4 quadrants with some very minimal tenderness noted in the mid epigastric to right upper quadrant area. LABORATORY DATA: Hemoglobin 12.1, hematocrit 36.5, white count is 8.2, platelets 324. Sodium 144, potassium 4.1, chloride 106, CO2 of 28, BUN is 18, creatinine is 1.3, and GFR is 51. Total bilirubin 0.8, alkaline phosphatase is 96, ALT is 123 and AST is 85, all which are trending down except for ALT bumped from 107-123, and lipase is normal. IMPRESSION: 1. Acute cholelithiasis. 2. Elevated LFTs. 3. Gastroesophageal reflux disease with history of NSAID use. PLAN: It appears that plans for surgical intervention either tomorrow or the next day and would recommend a laparoscopic cholecystectomy with IOC at that time. We will wait and see if there are any further instructions at this time. Thank you for allowing us to participate in this patient's care. Please do not hesitate to call with any questions in regard with this consult. <ELECTRONICALLY SIGNED> By: Tomasz Noonan MD 05/13/17 1450 [id number] Noonan MD /nt
--- NOTE | 2017-05-13 14:50 | CON ---
[address] [address] CONSULTATION Name: NEMESIO FELIPE Room: [address] IN M.R.#: [id number] Admission: 04/25/17 Attend Phys: Tung Farooq MD Discharge: 05/01/17 Date of : 56 Report #: [id number] THIS REPORT FOR: //name// CC: Tung Delacruz DATE OF SERVICE: 04/26/2017 ADDENDUM: I personally seen and examined the patient and reviewed labs and imaging. The patient with history of upper and lower endoscopy last year, which was significant for diverticulosis and gastritis, who presents with few weeks of abdominal pain. She also gave us a history of taking Naprosyn for a month that she finally stopped due to dyspepsia type symptoms. Since hospitalization, she had imaging studies suggestive of dilated common bile duct to 10 mm. Her LFTs were also elevated and bilirubin initially was 1.3 and down to 0.8. She currently feeling a little bit better and she has tolerated her meal. We will go ahead and perform an upper endoscopy to rule out gastroduodenal ulcer. In reference to her abnormal liver enzymes, we will recommend lap jaspreet with IOC. If the patient had choledocholithiasis, we will consider ERCP with stone extraction. <ELECTRONICALLY SIGNED> By: Tomasz Noonan MD 05/13/17 1450 [id number] [id number] Noonan MD /kandice
== END 2017-05-01 17:25 | disposition home health service (06) | DRG 418 ==
LOC: M.ERS 10:03 → M.TBA-ER 14:36 → M.ORTHSURG 14:36
PROVIDERS: Internal Medicine Gastroenterology; Personal Emergency Response Attendant; Surgery; ADMIT Internal Medicine
DX: K80.63 Calculus of gallbladder and bile duct with acute cholecystitis with obstruction (principal); I42.9 Cardiomyopathy, unspecified; J98.11 Atelectasis; I24.9 Acute ischemic heart disease, unspecified; I13.0 Hypertensive heart and chronic kidney disease with heart failure and stage 1 through stage 4 chronic kidney disease, or unspecified chronic kidney disease; I50.32 Chronic diastolic (congestive) heart failure; N17.9 Acute kidney failure, unspecified; R65.10 Systemic inflammatory response syndrome (SIRS) of non-infectious origin without acute organ dysfunction; M19.90 Unspecified osteoarthritis, unspecified site; G89.29 Other chronic pain; M54.9 Dorsalgia, unspecified; F32.9 Major depressive disorder, single episode, unspecified; R09.02 Hypoxemia; K44.9 Diaphragmatic hernia without obstruction or gangrene; I50.9 Heart failure, unspecified; N18.9 Chronic kidney disease, unspecified; E11.22 Type 2 diabetes mellitus with diabetic chronic kidney disease; K21.9 Gastro-esophageal reflux disease without esophagitis; M10.9 Gout, unspecified; Z95.0 Presence of cardiac pacemaker

== ENCOUNTER 2017-12-05 19:50 | Inpatient (IN) | payer OTHER ==
[~2017-12-05] VITALS: Ht 162.6 cm; Wt 88.5 kg
[~2017-12-05 19:50] MED LIST changes: +COLACE CLEAR50 MG PO; +COZAAR 25 MG TA25 M1 PO; +FLOMAX0.4 MG PO; +PROTONIX40 M4 PO; +REGLAN 10 MG TA10 MG PO; +TYLENOL325 MG PO
[2017-12-05 19:53] VITALS: BP 198/98
[2017-12-05 21:16] LABS: CREATININE 1.1 mg/dL (0.6-1.3); POTASSIUM 3.1 mmol/L (3.5-5.1)
[2017-12-05 21:19] LABS: ABSOLUTE LYMPHOCYTES 0.9 thou/uL (0.8-5.3); MCH 30.2 pg (26.0-34.0); MCHC 32.7 g/dL (28.0-37.0); MPV 9.5 fl. (7.2-11.1)
[2017-12-05 21:21] LABS: ABSOLUTE EOSINOPHILS 0.1 thou/uL (0.0-0.7); ABSOLUTE MONOCYTES 0.9 thou/uL (0.0-1.2); ABSOLUTE NEUTROPHILS 6.3 thou/uL (1.6-8.1); BASOPHILS 0.6 %; EOSINOPHILS 1.2 %; HEMOGLOBIN 13.4 gm/dL (12.0-15.0); LYMPHOCYTES 10.8 %; MCV 92.5 fL (80.0-100.0); MONOCYTES 10.5 %; NUCLEATED RBCS 0 /100WBC; PLATELET COUNT* 343 thou/uL (150-400); POLYS 76.9 %; RBC 4.44 mil/uL (4.20-5.00); RDW-CV 14.9 % (10.5-14.5); WBC 8.2 thou/uL (4.0-11.0)
[2017-12-05 21:25] LABS: ALBUMIN 3.3 g/dL (3.4-5.0); TOTAL BILIRUBIN 0.8 mg/dL (<0.1-1.0); TOTAL PROTEIN 7.9 g/dL (6.4-8.2)
[2017-12-06] VITALS (7 sets, daily range): BP systolic 151–188; BP diastolic 74–94
[2017-12-06 00:33] LABS: URINE BILIRUBIN NEGATIVE (Negative); URINE BLOOD TRACE (Negative); URINE CLARITY CLEAR; URINE COLOR YELLOW; URINE GLUCOSE-RANDOM NEGATIVE (Negative); URINE KETONES NEGATIVE (Negative); URINE LEUKOCYTES-REFLEX NEGATIVE (Negative); URINE NITRITE-REFLEX NEGATIVE (Negative); URINE PROTEIN 2+ (Negative); URINE SPECIFIC GRAVITY <= 1.005 (1.005-1.030); URINE UROBILINOGEN 0.2 E.U./dl (0.2-1.0)
[2017-12-07 04:28] LABS: HEMATOCRIT 37.6 % (37.0-47.0); HEMOGLOBIN 12.2 gm/dL (12.0-15.0); MCH 30.2 pg (26.0-34.0); MCHC 32.5 g/dL (28.0-37.0); MPV 9.6 fl. (7.2-11.1); RBC 4.04 mil/uL (4.20-5.00); RDW-CV 15.6 % (10.5-14.5); WBC 7.1 thou/uL (4.0-11.0)
[2017-12-07 04:57] LABS: CALCIUM 8.2 mg/dL (8.5-10.1); CREATININE 1.2 mg/dL (0.6-1.3); MAGNESIUM 1.7 mg/dL (1.8-2.4)
[2017-12-07 09:14] VITALS: BP 198/119
[2017-12-07 16:49] VITALS: BP 170/100
[2017-12-07 17:50] LABS: MAGNESIUM 1.6 mg/dL (1.8-2.4)
[2017-12-07 18:15] VITALS: BP 168/82
[2017-12-07 20:20] VITALS: BP 150/84
[2017-12-07 23:09] LABS: GLYCOHEMOGLOBIN (HGB A1C) 6.3 % (4.8-5.6)
[2017-12-08 01:04] VITALS: BP 183/101
[2017-12-08 02:20] VITALS: BP 187/105
[2017-12-08 02:50] VITALS: BP 191/101
[2017-12-08 08:41] VITALS: BP 193/103
[2017-12-08 13:03] VITALS: BP 157/90
[2017-12-08 20:20] VITALS: BP 168/89
[2017-12-09 05:28] LABS: HEMOGLOBIN 12.1 gm/dL (12.0-15.0); MCH 30.9 pg (26.0-34.0); MCHC 33.4 g/dL (28.0-37.0); MCV 92.3 fL (80.0-100.0); MPV 8.8 fl. (7.2-11.1); NUCLEATED RBCS 1 /100WBC; PLATELET COUNT* 301 thou/uL (150-400); RDW-CV 15.4 % (10.5-14.5); WBC 8.2 thou/uL (4.0-11.0)
[2017-12-09 05:38] LABS: CALCIUM 8.7 mg/dL (8.5-10.1); CREATININE 1.1 mg/dL (0.6-1.3); MAGNESIUM 1.6 mg/dL (1.8-2.4); POTASSIUM 3.3 mmol/L (3.5-5.1)
[2017-12-09 06:53] LABS: ABSOLUTE LYMPHOCYTES 0.6 thou/uL (0.8-5.3); ABSOLUTE MONOCYTES 0.7 thou/uL (0.0-1.2); ABSOLUTE NEUTROPHILS 6.9 thou/uL (1.6-8.1); ANISOCYTOSIS 1+; PLATELET ESTIMATE ADEQUATE; POIKILOCYTOSIS 1+
[2017-12-09 08:00] VITALS: BP 180/95
[2017-12-09] MEDS ORDERED: FLAGYL500 MG PO (13:35)
[2017-12-09] MEDS ORDERED: CIPRO500 MG PO (13:35)
[2017-12-09] MEDS ORDERED: NORVASC10 MG PO (13:36)
[2017-12-09] MEDS ORDERED: NEURONTIN 300300 M1 PO (13:36)
[2017-12-09] MEDS ORDERED: KLOR-CON 1010 MEQ PO (13:42)
--- NOTE | 2017-12-20 11:23 | CON ---
[address] [address] CONSULTATION Name: NEMESIO FELIPE Room: [address] [place] M.R.#: [id number] Admission: 12/05/17 Attend Phys: Niels Knox MD Discharge: 12/09/17 Date of : 56 Report #: [id number] THIS REPORT FOR: //name// CC: Rich Knox HISTORY OF PRESENT ILLNESS: This is a very pleasant 57-year-old -E[place]ian female with past medical history of hypertension, diabetes, GERD, spinal stenosis and prior history of diverticulitis, who is presenting with abdominal pain. The patient reports abdominal pain is located in the left upper quadrant and left flank and is associated with fevers and chills. She reports associated diarrhea and nausea, but denies any vomiting. The patient had recent cholecystectomy in April of this year and reports that she was diagnosed with diverticulitis around the same time. She reports the pain is localized, nonradiating and has no particular association with food or bowel movements. The patient denies any hematemesis, hematochezia, or recent weight loss. PAST MEDICAL HISTORY: The patient has history of coronary artery disease, congestive heart failure, spinal stenosis, diabetes, hypertension and one episode of diverticulitis in the past: PAST SURGICAL HISTORY: The patient had a cholecystectomy in April of this year and has had 4 back surgeries. SOCIAL HISTORY: She denies smoking or alcohol use, but the patient does admit smoking marijuana at least 1-2 times per week. She also reports that she takes brownies infused with marijuana on a regular basis to help with her back pain. FAMILY HISTORY: Significant for breast cancer in both mother and sister, otherwise is negative. REVIEW OF SYSTEMS: A comprehensive 10-point review of systems is negative except for what is mentioned here. PHYSICAL EXAMINATION: VITAL SIGNS: Temperature 36.7, pulse rate 81, respirations 16, blood pressure 151/74, pulse ox 96% on room air. GENERAL: The patient is alert, awake, oriented x 3. HEENT: Pupils are equal, round, reactive to light and accommodation. Mucous membranes are moist. NECK: Supple. There is no congestion. There is no supraclavicular lymphadenopathy. CARDIOVASCULAR: Rate and rhythm regular; S1, S2 present. LUNGS: Clear to auscultation bilaterally. ABDOMEN: Soft, mild tenderness in the left upper quadrant and left lower quadrant. There is no guarding or rigidity. [place] [address] CONSULTATION Name: NEMESIO FELIPE Room: [address]#: [id number] Admission: 12/05/17 Attend Phys: Niels Knox MD Discharge: 12/09/17 Date of : 56 Report #: [id number] EXTREMITIES: Warm and well perfused. There is no edema. SKIN: Warm and dry. LABORATORY DATA: Hemoglobin 13.4, hematocrit 41, platelet count 343, WBC count 8.2. Sodium 140, potassium 3.1, chloride 105, bicarbonate 25, BUN 15, creatinine 1.1, glucose 138, total bilirubin 0.8, AST 41, ALT 73, alkaline phosphatase 94, albumin 3.3. Abdomen and pelvis CT with IV contrast, retroperitoneal adenopathy is noted with mildly enlarged retroperitoneal nodes. This includes left periaortic lymph node measuring 16 x 13 mm and additional left paraaortic lymph node measuring 11 x 7 mm and aortocaval node measuring 7 x 12 mm. There is no significant iliac or inguinal lymphadenopathy. There is one mildly enlarged mesenteric lymph node, there is some mild stranding and inflammatory change around sigmoid colon, descending colon suggesting diverticulitis. Appendix is normal. ASSESSMENT AND PLAN: This is a very pleasant 57-year-old female with a past medical history of hypertension, diabetes, congestive heart failure, and one episode of diverticulitis, presenting with recurrent left upper left flank pain with CT evidence of possible diverticulitis in the descending and sigmoid colon. CT also demonstrates worsening retroperitoneal lymphadenopathy. Additionally, the patient appears to have mildly elevated AST and ALT. 1. Diverticulitis. 2. Retroperitoneal lymphadenopathy. 3. Elevated liver enzymes. I would recommend p.o. Cipro and Flagyl for 7-10 days for the patient's diverticulitis and advance her diet to regular diet. I would recommend an outpatient EUS and FNA to evaluate the retroperitoneal lymphadenopathy. This can be arranged in 3-4 weeks' time. The patient has had chronic elevation of her liver enzymes, most likely due to fatty liver disease. <ELECTRONICALLY SIGNED> By: Faustino Ponce MD 12/20/17 1123 [id number] Ponce MD /nt
== END 2017-12-09 15:48 | disposition home health service (06) | DRG 391 ==
LOC: M.ERS 19:50 → M.TBA-ER 23:58 → M.2W 23:58 → M.ORTHSURG 12-06 16:13
PROVIDERS: Family Medicine; Internal Medicine; Personal Emergency Response Attendant
DX: K57.92 Diverticulitis of intestine, part unspecified, without perforation or abscess without bleeding (principal); J96.91 Respiratory failure, unspecified with hypoxia; I50.23 Acute on chronic systolic (congestive) heart failure; I13.0 Hypertensive heart and chronic kidney disease with heart failure and stage 1 through stage 4 chronic kidney disease, or unspecified chronic kidney disease; J45.909 Unspecified asthma, uncomplicated; K21.9 Gastro-esophageal reflux disease without esophagitis; F32.9 Major depressive disorder, single episode, unspecified; M19.90 Unspecified osteoarthritis, unspecified site; G89.29 Other chronic pain; M10.9 Gout, unspecified; I25.10 Atherosclerotic heart disease of native coronary artery without angina pectoris; R59.1 Generalized enlarged lymph nodes; R10.9 Unspecified abdominal pain; M48.00 Spinal stenosis, site unspecified; F41.9 Anxiety disorder, unspecified; E11.22 Type 2 diabetes mellitus with diabetic chronic kidney disease; I49.9 Cardiac arrhythmia, unspecified; N18.3 Chronic kidney disease, stage 3 (moderate); E87.6 Hypokalemia; E83.42 Hypomagnesemia; Z90.49 Acquired absence of other specified parts of digestive tract; Z98.41 Cataract extraction status, right eye; Z80.3 Family history of malignant neoplasm of breast; Z83.3 Family history of diabetes mellitus; Z82.49 Family history of ischemic heart disease and other diseases of the circulatory system; Z23 Encounter for immunization; Z79.899 Other long term (current) drug therapy